=== PATIENT | female | born 1985 | race Caucasian/White ===

== ENCOUNTER 2021-01-03 03:30 | Inpatient (IN) | payer MEDICAID, SELFPAY ==
[2021-01-03] VITALS (36 sets, daily range): BP systolic 109–146; BP diastolic 59–100; PULSE 55–96; RESP 15–18; TEMP 35.7–37.2; O2SAT 98; BMI 35.7
[2021-01-03 03:59] LABS: Basophils # 0.1 10^3/uL (0.0-0.1); Basophils % 0.7 %; Eosinophils # 0.2 10^3/uL (0.0-0.8); Eosinophils % 2.3 %; Hematocrit 35.7 % (37.0-47.0); Lymphocytes % 19.1 %; Mean Corpuscular HGB Conc 33.6 g/dL (30.0-36.0); Mean Corpuscular Hemoglobin 32.7 pg (28.0-34.0); Mean Corpuscular Volume 97.3 fL (81-99); Mean Platelet Volume 11.9 fL (7.4-10.4); Monocytes # 0.7 10^3/uL (0.2-0.9); Neutrophils # 7.44 10^3/uL (1.8-7.7); Neutrophils % 70.4 %; Nucleated Red Blood Cells % 0 %; Platelet Count 153 10^3/cmm (130-400); Red Blood Count 3.67 10^6/uL (4.1-5.3); Red Cell Distribution Width 14.7 % (12.1-15.1); White Blood Count 10.6 10^3/uL (4.0-10.0)
[2021-01-03] MEDS: lactated ringers 1,000 ML 999 ML IV (04:40)
[2021-01-03] MEDS: oxytocin 30 UNIT/500 ML BAG 600 UNIT IV (05:38)
[2021-01-03] MEDS: miSOPROStol 200 mcg Tablet 800 MCG PR (05:40)
[2021-01-03] MEDS: prenatal vitamin Capsule 1 CAP PO (08:29)
[2021-01-03] MEDS: ibuprofen 800 mg tablet PO ×3 (08:29→20:51)
[2021-01-03] MEDS: docusate sodium 100 mg Capsule PO ×2 (08:30→18:21)
--- NOTE | 2021-01-03 17:13 | P.PCNOB_ITS ---
Delivery Note: Date of delivery: January 03, 2021 Pre-Delivery Course: The patient had insufficient care. She had 3 visits. She was GBS unknown. Delivery: This is a 35-year-old G7, P6 at 39 weeks 4 days gestation who presented to labor and delivery in active labor. She had artificial rupture of membranes with clear fluid. Rupture of membranes was less than 1-1/2 hours prior to delivery. She had a normal spontaneous vaginal delivery of a viable male weight 9 pounds 12 ounces, Apgars 9 and 9 over an intact perineum. The infant was suctioned at delivery and placed on the mother's chest. The cord was clamped and cut. The placenta was delivered grossly intact and normal to inspection. Mother had a history of hemorrhage x2 with prior delieveries so she was prophylactically given 800 mcg of Cytotec rectally. Mother and were doing well after delivery. 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
[2021-01-03] MEDS: albuterol 8 gm MDI 2 PUFF INHALATION (17:47)
[2021-01-03 18:05] LABS: Hematocrit 31.5 % (37.0-47.0); Hemoglobin 10.6 g/dL (11.5-15.3); Mean Corpuscular HGB Conc 33.7 g/dL (30.0-36.0); Mean Corpuscular Hemoglobin 33.1 pg (28.0-34.0); Mean Corpuscular Volume 98.4 fL (81-99); Platelet Count 146 10^3/cmm (130-400); Red Cell Distribution Width 14.6 % (12.1-15.1); White Blood Count 12.3 10^3/uL (4.0-10.0)
[2021-01-04 03:56] VITALS: BP 121/81; PULSE 69
[2021-01-04] MEDS: prenatal vitamin Capsule 1 CAP PO (10:07)
[2021-01-04] MEDS: ibuprofen 800 mg tablet PO ×3 (10:07→21:06)
[2021-01-04] MEDS: docusate sodium 100 mg Capsule PO ×2 (10:07→17:24)
[2021-01-04 10:10] VITALS: BP 145/63; PULSE 91; TEMP 35.7
[2021-01-04 10:15] VITALS: RESP 17; TEMP 36.7
[2021-01-04 16:31] VITALS: TEMP 36.7
[2021-01-04 16:32] VITALS: BP 113/60; PULSE 65
--- NOTE | 2021-01-04 20:38 | P.PN_ITS ---
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: Station: 0 Amniotic Membrane Status: Ruptured Monitor Mode: External Contraction Pattern: Regular Post /CS: Patient comments OB post-: other (Hemorrhoids bothering her but otherwise no complaints) baby status: doing well and nursing well Vitals/I&O/Wt Last Vital Signs Temp 98.1 F 01/04/21 16:31 Pulse 65 01/04/21 16:32 Resp 17 01/04/21 10:15 BP 113/60 01/04/21 16:32 Pulse Ox 98 01/03/21 17:35 Weight last 48 hrs Weight 97.522 kg Physical Exam Chest: COMMONS NORMALS: normal inspection of the chest Resp: COMMON NORMALS: normal respiratory effort Cardio: COMMON NORMALS: regular rate and regular rhythm RATE: regular rate RHYTHM: regular rhythm : BLADDER/KIDNEY EXAM: Yes other (Abdomen nontender, fundus firm and U- 1) Extremity: GENERAL: No calf tenderness and No edema Data : 01/03/21 05:30 A&P Assessment and plan (1) (normal spontaneous vaginal delivery): Status: Acute (2) Limited care: Status: Acute Attestations Medical Necessity Statement*: If doing well likely discharge home tomorrow Coding Level of Care Code Acute Control Panel Tester for [facility] Fwd Diagnoses (normal spontaneous vaginal delivery) O80 Limited care O09.30
[2021-01-04 21:08] VITALS: BP 121/73; PULSE 69; TEMP 36.1
[2021-01-05 04:05] VITALS: TEMP 36.2
[2021-01-05 04:06] VITALS: BP 134/75; PULSE 75
[2021-01-05] MEDS: ibuprofen 800 mg tablet PO (09:37)
[2021-01-05] MEDS: prenatal vitamin Capsule 1 CAP PO (09:37)
[2021-01-05] MEDS: docusate sodium 100 mg Capsule PO (09:37)
--- NOTE | 2021-01-05 10:24 | PM.DCS ---
Discharge Providers Date of Admission: 01/03/21 03:30 Date of Discharge: January 05, 2021 Attending Provider at Admission: Afua Alba MD Attending Provider at Discharge: Afua Alba MD Diagnoses at Discharge Discharge Diagnosis (1) (normal spontaneous vaginal delivery): Status: Acute (2) Limited care: Status: Acute Reason for Visit Reason for Visit: ctx every 6 minutes Hospital Course Hospital Course This is a 35-year-old G7 now P7 who had a normal spontaneous vaginal delivery of a viable male infant. Mother was GBS unknown so the was kept for 48 hours inpatient monitoring. Mother did well after delivery she had average vaginal bleeding and denied any pain. Physical Exam Narrative: EXAM NARRATIVE: Alert and oriented no acute distress, abdomen soft, nontender, fundus firm and U- 1, no calf tenderness, no pedal edema. Discharge Data Vitals: Last Vital Signs Temp 97.2 F L 01/05/21 04:05 Pulse 75 01/05/21 04:06 Resp 17 01/04/21 10:15 BP 134/75 01/05/21 04:06 Pulse Ox 98 01/03/21 17:35 Discharge Plan Discharge Patient Disposition: Home Condition: Stable Prescriptions: Continued RF: 0 Discharge Orders: Discharge Order (Routine); Ordered 01/05/21 Ordered By: Afua Alba Referrals: Afua Alba MD [Physician] - 1 month (schedule mom and baby prior to hospital d/c) Discharge Diet: Usual diet Discharge Activity: Limit activity as instructed Patient Instructions: Pre-eclampsia and Eclampsia (DC), Bleeding (DC), OB Discharge Report, OB Food/Drug Interaction Guide, Opioid Safety, OB Home Care, OB Proud Parent Packet, OB Vaginal Deliveries Discharge Attestations Time Spent in Discharge Care*: less than 30 min Quality Metrics Clinical Quality Measures During this hospital stay, did patient experience: None Coding Level of Care Code Acute Chg FW DC note Diagnoses (normal spontaneous vaginal delivery) O80 Limited care O09.30
[2021-01-05 10:38] VITALS: BP 134/76; PULSE 82; TEMP 36.6
[2021-01-05 10:41] VITALS: RESP 15
[2021-01-05 12:54] VITALS: BP 126/78; PULSE 71
[2021-01-05 12:56] VITALS: RESP 17; TEMP 36.7
== END 2021-01-05 13:23 | disposition home or self-care (01) | DRG 807 ==
PROVIDERS: Admitting Provider Family Medicine; Visit Provider Family Medicine
DX: O99.334 Smoking (tobacco) complicating childbirth (principal); Z37.0 Single live birth; F17.210 Nicotine dependence, cigarettes, uncomplicated; Z3A.39 39 weeks gestation of pregnancy; O75.89 Other specified complications of labor and delivery; J45.909 Unspecified asthma, uncomplicated
CPT/HCPCS: 36415; 59025; 59409; 85025; 85027; 94640; 99211; J3535

== ENCOUNTER 2022-03-18 13:27 | Inpatient (IN) | payer MEDICAID, SELFPAY ==
[2022-03-18] VITALS (48 sets, daily range): BP systolic 98–141; BP diastolic 50–87; PULSE 57–107; RESP 15–16; TEMP 35.7–36.7; O2SAT 88–99; BMI 32.4
[2022-03-18 07:41] LABS: Basophils # 0.1 10^3/uL (0.0-0.1); Basophils % 0.5 %; Eosinophils # 0.1 10^3/uL (0.0-0.8); Eosinophils % 1.4 %; Hematocrit 34.9 % (37.0-47.0); Hemoglobin 12.1 g/dL (11.5-15.3); Lymphocytes # 1.7 10^3/uL (0.8-4.8); Lymphocytes % 17.6 %; Mean Corpuscular HGB Conc 34.7 g/dL (30.0-36.0); Mean Corpuscular Hemoglobin 33.3 pg (28.0-34.0); Mean Corpuscular Volume 96.1 fl (81-99); Mean Platelet Volume 11.4 fL (7.4-10.4); Monocytes # 0.6 10^3/uL (0.2-0.9); Monocytes % 6.4 %; Neutrophils # 7.15 10^3/uL (1.8-7.7); Neutrophils % 73.6 %; Nucleated Red Blood Cells % 0 %; Platelet Count 150 10^3/cmm (130-400); Red Blood Count 3.63 10^6/uL (4.1-5.3); White Blood Count 9.7 10^3/uL (4.0-10.0)
[2022-03-18 07:51] LABS: Amphetamines Screen Urine Negative (Negative); Barbiturates Screen Urine Negative (Negative); Benzodiazepines Screen Urine Negative (Negative); Cocaine Screen Urine Negative (Negative); Opiate Screen Urine Negative (Negative); PCP Screen Urine Negative (Negative); THC Screen Urine Negative (Negative)
--- NOTE | 2022-03-18 10:10 | P.ANESASSM_ITS ---
Pre-Anesthetic Assessment Height/Weight: Height 1.65 m Weight 88.451 kg Temp Pulse BP Pulse Ox O2 Del Method 97.3 F L 98 127/67 98 03/18/22 07:49 03/18/22 10:05 03/18/22 09:58 03/18/22 10:05 03/18/22 08:23 Preop Diagnosis: IUP epidural Familial anesthetic complications: none Was Beta Sue taken within 24 hours: N/A Was Clonidine taken within 24 hours: N/A Last intake: > 8 hrs Social Tobacco and No alcohol Exam alert, oriented x 3, clear to auscultation bilaterally and regular rate & rhythm Airway Mallampati: Class II Dentition: partials Pulmonary Asthma CV/HEM None reported None reported Hepatic None reported GI None reported Metabolic None reported Musc/skel None reported Neuropsych None reported Anesthetic Plan ASA status: 2 Anesthesia: Regional (specify below) Risk of > 500 ml blood loss (7ml/kg in children): Yes, adequate IV access and fluids planned Medications/Allergies Home Medications Medication Instructions Recorded Confirmed Last Taken Type albuterol 1 spray inhalation PRN asthma 03/18/22 03/18/22 Unknown History Allergies Allergy/AdvReac Type Severity Reaction Status Date / Time No Known Allergies Allergy Verified 03/18/22 07:05 Current Medications Generic Name Dose Route Start Last Admin Trade Name [place] PRN Reason Stop Dose Admin Ropivacaine 200 mg in 100 mls @ 13 mls/hr 03/18/22 09:00 03/18/22 10:02 Naropin Premix EPIDURAL 13 mls/hr .[id number] KEHINDE Administration [facility] Anesthesia Female Reproductive History : 8 Data Anesthesia : 03/18/22 07:11 Short CBC 03/18/22 Range/Units 07:11 WBC 9.7 (4.0-10.0) 10^3/uL Hgb 12.1 (11.5-15.3) g/dL Hct 34.9 L (37.0-47.0) % MCV 96.1 (81-99) fl Plt Count 150 (130-400) 10^3/cmm Neut % (Auto) 73.6 % Neut # (Auto) 7.15 (1.8-7.7) 10^3/uL Cardiac Studies: No Data to Display
--- NOTE | 2022-03-18 10:12 | ANES.PROC ---
Anesthesia Procedures Procedure/Date: 03/18/22 Epidural: Time Out Performed: Yes Consents Signed: Procedure Consent and NPO Consent Consent: requested by attending/covering physician, from patient, risks and benefits reviewed and patient agrees to proceed Lumbar Level: L3-L4 Epidural position: sitting Epidural procedure: sterile prep of area, 1% lidocaine to numb the area, 18 g needle, negative for paresthesia passed, neg for paresthesia, test dose given, 1.5% xylocaine 1:200k epi (5 ml (divided dose)), 0.2% Ropivacaine bolus ml (5 ml), placed PCEA, no systemic response, sterile dressing applied, L.U.D. no apparent complications and 0.2% Ropiavacaine @ mls/hr (13) Additional Comments: JAIME at 4 cm, threaded to 10 cm. Patient reported pain of 2 subsequent contractions as 2/10 pain. Previously to epidural rating 7 or 8 out of 10
--- NOTE | 2022-03-18 12:08 | PM.OPHPUD ---
Labor & Delivery H&P Update Date of Procedure: March 18, 2022 Date H&P Performed: 03/18/22 Admission Diagnosis: IUP at 39w6d in active labor Insufficient care Abnormal glucose tolerance test with no follow-up GBS unknown Advanced maternal age Grand multiparity Tobacco use during Hx of hemorrhage Preop diagnosis: IUP Other information: This is a 36 y/o G9, P7 at 39 weeks 6 days gestation by an LMP of 06/12/2021 with an ALEX of 03/19/2022 who presented to labor and delivery in active labor. She had insufficient care presenting at 32 weeks gestation and having only an OB interview and 1 new OB visit. She had an abnormal glucose tolerance test with result 181 and did not follow-up with her 3-hour glucose tolerance test. She is GBS unknown since she did not follow-up for any further visits.
--- NOTE | 2022-03-18 13:17 | P.PCNOB_ITS ---
Delivery Note: Date of delivery: March 18, 2022 Pre-delivery diagnoses: IUP at 39 weeks 6 days gestation Insufficient care Failed glucose tolerance test without follow-up testing Unknown GBS Tobacco use during Grand multiparity Advanced maternal age History of hemorrhage Delivery: This is a 36-year-old G9 now P8 at 39 weeks 6 days gestation who presented to labor and delivery in active labor. Her labor was progressing rather slowly. She decided to get an epidural for pain management. Once the infant's head was engaged enough artificial rupture of membranes was performed with clear fluid. About an hour later she had a normal spontaneous vaginal delivery of a viable male weight 3.75kg Apgars 8 and 9 over an intact perineum. The infant was suctioned at delivery and placed on the mother's chest. The cord was clamped and cut. The placenta was delivered grossly intact and normal to inspection. 800 mcg of Cytotec was placed rectally due to her multiparity and history of hemorrhage. Mother and infant were doing well after delivery. 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
[2022-03-18] MEDS: miSOPROStol 200 mcg Tablet 800 MCG PR (13:18)
[2022-03-18] MEDS: ibuprofen 800 mg tablet PO ×2 (14:53→21:30)
[2022-03-18] MEDS: docusate sodium 100 mg Capsule PO (18:01)
[2022-03-18] MEDS: acetaminophen 325 mg Tablet 650 MG PO (18:01)
[2022-03-19 03:04] LABS: Hematocrit 29.9 % (37.0-47.0); Hemoglobin 10.4 g/dL (11.5-15.3); Mean Corpuscular HGB Conc 34.8 g/dL (30.0-36.0); Mean Corpuscular Hemoglobin 33.7 pg (28.0-34.0); Mean Corpuscular Volume 96.8 fl (81-99); Mean Platelet Volume 11.3 fL (7.4-10.4); Platelet Count 139 10^3/cmm (130-400); Red Blood Count 3.09 10^6/uL (4.1-5.3); Red Cell Distribution Width 14.1 % (12.1-15.1); White Blood Count 10.8 10^3/uL (4.0-10.0)
[2022-03-19] MEDS: acetaminophen 325 mg Tablet 650 MG PO (04:21)
[2022-03-19 04:35] VITALS: BP 116/61; PULSE 67; RESP 15; TEMP 36.6; O2SAT 99
--- NOTE | 2022-03-19 09:14 | PC.NURSE ---
Patient reported that was going very well, stated he is my best breastfeeder so far . Let patient know that services are available as outpatient if she runs into difficulty. Patient stated that with her last her supply decreased due to infant sleeping through the night. Educated on the need for frequent removal of milk from the breast to maintain supply, and that she may need to set an alarm to wake infant for feeds or if is gaining weight appropriately she may need to wake up and pump during the night to maintain supply.
[2022-03-19] MEDS: ibuprofen 800 mg tablet PO ×3 (09:38→20:30)
[2022-03-19] MEDS: prenatal vitamin Capsule 1 CAP PO (09:38)
[2022-03-19] MEDS: docusate sodium 100 mg Capsule PO ×2 (09:38→16:11)
[2022-03-19 09:45] VITALS: BP 123/80; PULSE 78; RESP 16; TEMP 36.4; O2SAT 98
[2022-03-19 16:15] VITALS: BP 136/93; PULSE 66; RESP 16; TEMP 36.8; O2SAT 98
--- NOTE | 2022-03-19 17:10 | P.PN_ITS ---
Subjective Subjective: Doing well. Bleeding is light today. She does have some significant uterine cramping but the ibuprofen and Tylenol is helping. Vitals/I&O/Wt Last Vital Signs Temp 97.6 F 03/19/22 09:45 Pulse 78 03/19/22 09:45 Resp 16 03/19/22 09:45 BP 123/80 03/19/22 09:45 Pulse Ox 98 03/19/22 09:45 O2 Del Method 03/19/22 09:45 Weight last 48 hrs Weight 88.451 kg Physical Exam Narrative: Alert and oriented sitting on bedside couch, heart regular rate and rhythm, lungs clear to auscultation bilaterally, abdomen is soft nontender, fundus is firm U- 2 extremities have trace edema but no calf tenderness alert and oriented, Urinary Catheter Management: Mcgowan: Cath Placed During This Visit: yes Urinary Catheter Date of Insertion: 03/18/22 Urinary Catheter Time of Insertion: 10:35 Data : 03/19/22 02:55 A&P Assessment and plan (1) (normal spontaneous vaginal delivery): Routine care. 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
[2022-03-19 21:11] VITALS: BP 112/73; PULSE 60; RESP 16; TEMP 36.9
[2022-03-20 04:33] VITALS: BP 122/75; PULSE 73; RESP 16; TEMP 36.6
--- NOTE | 2022-03-20 07:15 | PC.NURSE ---
At bedside with patient and . Observed latch, patient stated that latch felt very comfortable, flanged lips and rhythmic suckling noted. Patient had no questions at this time. Educated patient on resources available after discharge
[2022-03-20] MEDS: acetaminophen 325 mg Tablet 650 MG PO (07:30)
[2022-03-20] MEDS: prenatal vitamin Capsule 1 CAP PO (08:56)
[2022-03-20] MEDS: ibuprofen 800 mg tablet PO ×2 (08:56→15:50)
[2022-03-20] MEDS: docusate sodium 100 mg Capsule PO (08:56)
[2022-03-20 09:00] VITALS: BP 132/69; PULSE 105; RESP 17; TEMP 36.4
--- NOTE | 2022-03-20 12:28 | P.DS_ITS ---
Discharge Providers Date of Admission: 03/18/22 13:27 Date of Discharge: March 20, 2022 Attending Provider at Admission: Afua Alba MD Attending Provider at Discharge: Afua Alba MD Diagnoses at Discharge Discharge Diagnosis (1) (normal spontaneous vaginal delivery): Status: Acute (2) Grand multiparity in labor and delivery, delivered: Status: Acute (3) Limited care: Status: Acute Reason for Visit Reason for Visit: Contractions Hospital Course Hospital Course This is a 36-year-old G9 now P A2 had a normal spontaneous vaginal delivery of a viable male . Mother and did well after delivery. She was ambulating, tolerating a regular diet, had no uterine tenderness and was comfortable with discharge home. Physical Exam Narrative: Alert and oriented, sitting on bedside couch, lungs clear to auscultation bilaterally, heart regular rate and rhythm, abdomen soft and nontender, fundus firm, extremities have trace edema but no calf tenderness Urinary Catheter Management: Mcgowan: Cath Placed During This Visit: yes Urinary Catheter Date of Insertion: 03/18/22 Urinary Catheter Time of Insertion: 10:35 Discharge Data Studies Completed and Pending Laboratory Results WBC 10.8 10^3/uL (4.0-10.0) H 03/19/22 02:55 RBC 3.09 10^6/uL (4.1-5.3) L 03/19/22 02:55 Hgb 10.4 g/dL (11.5-15.3) L 03/19/22 02:55 Hct 29.9 % (37.0-47.0) L 03/19/22 02:55 MCV 96.8 fl (81-99) 03/19/22 02:55 MCH 33.7 pg (28.0-34.0) 03/19/22 02:55 MCHC 34.8 g/dL (30.0-36.0) 03/19/22 02:55 RDW 14.1 % (12.1-15.1) 03/19/22 02:55 Plt Count 139 10^3/cmm (130-400) 03/19/22 02:55 MPV 11.3 fL (7.4-10.4) H 03/19/22 02:55 Neut % (Auto) 73.6 % 03/18/22 07:11 Lymph % (Auto) 17.6 % 03/18/22 07:11 M[place]ulloch % (Auto) 6.4 % 03/18/22 07:11 Eos % (Auto) 1.4 % 03/18/22 07:11 Baso % (Auto) 0.5 % 03/18/22 07:11 Neut # (Auto) 7.15 10^3/uL (1.8-7.7) 03/18/22 07:11 Lymph # (Auto) 1.7 10^3/uL (0.8-4.8) 03/18/22 07:11 [place]ulloch # (Auto) 0.6 10^3/uL (0.2-0.9) 03/18/22 07:11 Eos # (Auto) 0.1 10^3/uL (0.0-0.8) 03/18/22 07:11 Baso # (Auto) 0.1 10^3/uL (0.0-0.1) 03/18/22 07:11 Nucleated RBC % (auto) 0 % 03/18/22 07:11 Nucleated RBCs # 0.0 /100WBC 03/18/22 07:11 Urine Opiates Screen Negative ng/mL (Negative) 03/18/22 06:50 Ur Barbiturates Screen Negative ng/mL (Negative) 03/18/22 06:50 Ur Phencyclidine Scrn Negative ng/mL (Negative) 03/18/22 06:50 Ur Amphetamines Screen Negative ng/mL (Negative) 03/18/22 06:50 U Benzodiazepines Scrn Negative ng/mL (Negative) 03/18/22 06:50 Urine Cocaine Screen Negative ng/mL (Negative) 03/18/22 06:50 U Marijuana (THC) Screen Negative ng/mL (Negative) 03/18/22 06:50 Vitals Last Vital Signs Temp 97.6 F 03/20/22 09:00 Pulse 105 H 03/20/22 09:00 Resp 17 03/20/22 09:00 BP 132/69 03/20/22 09:00 Pulse Ox 98 03/19/22 16:15 O2 Del Method 03/20/22 09:00 Discharge Plan Discharge Patient Disposition: Home Condition: Stable Prescriptions: Continued albuterol 1 spray inhalation PRN Discharge Orders: Discharge Order (Routine); Ordered 03/20/22 Ordered By: Afua Alba Referrals: Afua Alba MD [Physician] - 1 month Discharge Diet: Usual diet Discharge Activity: Limit activity as instructed Patient Instructions: Depression (DC), Bleeding (DC), Preeclampsia and Eclampsia After Delivery (GEN), OB Discharge Report, OB Food/Drug Interaction Guide, OB Care at Home, Opioid Safety, OB Vaginal Deliveries Activity Restrictions/Additional Instructions: Nothing per vagina for 6 weeks Discharge Attestations Time Spent in Discharge Care*: less than 30 min Quality Metrics Clinical Quality Measures [ No reported AMI, CVA or VTE this stay] Coding Level of Care Code Acute Chg FW DC note Diagnoses (normal spontaneous vaginal delivery) O80 Grand multiparity in labor and delivery, delivered O80 Limited care O09.30
--- NOTE | 2022-03-20 13:43 | ANE.PACU2 ---
Inpatient post-anesthesia follow up: Airway intact: Yes Vital signs: Temperature 97.6 F Pulse Rate 105 Respiratory Rate 17 Blood Pressure 132/69 Pulse Oximetry 98 Oxygen Delivery Me thod Room Air Oxygen Flow Rate Fraction of Inspir ed Oxygen Hydration adequate: No Nausea and vomiting: No Pain level: 1 Mental status: Baseline
[2022-03-20 15:37] VITALS: BP 139/86; PULSE 67; RESP 17; TEMP 36.6
== END 2022-03-20 16:10 | disposition home or self-care (01) | DRG 807 ==
LOC: OPOB 13:28 → OBGYN 13:28
PROVIDERS: Admitting Provider Family Medicine; Visit Provider Family Medicine
DX: O99.334 Smoking (tobacco) complicating childbirth (principal); Z37.0 Single live birth; O99.814 Abnormal glucose complicating childbirth; F17.210 Nicotine dependence, cigarettes, uncomplicated; Z3A.39 39 weeks gestation of pregnancy; O75.89 Other specified complications of labor and delivery; J45.909 Unspecified asthma, uncomplicated; Z79.51 Long term (current) use of inhaled steroids
CPT/HCPCS: 36415; 51702; 59025; 59409; 80306; 85025; 85027; 98960; 99211; J2795